=== PATIENT | male | born 1965 | race Caucasian/White ===

== ENCOUNTER 2017-01-30 19:04 | Observation (INO) | payer MEDICAID ==
[2017-01-30 19:04] VITALS: BMI 25.7
[2017-01-30] MEDS ORDERED: Sterile Water 10 ML IV ONE ×2 (19:19→23:27)
--- NOTE | 2017-01-30 20:24 | ED PDOC ---
HPI: Psych/Substance Abuse Time Seen by Provider: 01/30/17 19:25 Chief Complaint (Nursing): Psychiatric Evaluation Chief Complaint (Provider): Agitation ED Caveat: Uncooperative History Per: EMS, Other (documentation of [facility]) History/Exam Limitations: clinical condition (acute agitation, refusing to answer most questions) Onset/Duration Of Symptoms: Days (just prior to arrival) Current Symptoms Are (Timing): Still Present Associated Symptoms: Agitation Involuntary Hold By: None Additional Complaint(s): Asim Gonzales is a 51 year old male, with a past medical history inclusive of hypercholesterolemia, COPD, type II diabetes and bipolar disorder as per previous records, who presents to the ED on 01/30/17, via EMS, for the evaluation of acute agitation. Per EMS, patient is from the [facility], where he had been agitated/yelling at staff just prior to arrival and refusing to take his medications (including Aripiprazole and Depakote). Upon arrival, patient remains visibly agitated/yelling and is refusing to answer most questions, limiting HPI/ROS. PMD: Dr. Wright Past Medical History Reviewed: Historical Data, Nursing Documentation, Vital Signs Vital Signs: Last Vital Signs Temp 98.2 F 01/30/17 19:08 Pulse 70 01/30/17 19:08 Resp 18 01/30/17 19:08 BP 140/92 H 01/30/17 19:08 Pulse Ox 100 01/30/17 19:08 - Medical History PMH: Asthma, Bipolar Disorder, COPD, Diabetes (type II), GERD Denies: Hepatitis, HIV, HTN, Chronic Kidney Disease, Seizures, Sexually Transmitted Disease - Family History Family History: States: Unknown Family Hx - Social History Current smoker - smoking cessation education provided: Yes (heavy (>10 cigarettes/day)) Alcohol: None Drugs: Denies - Immunization History Hx Tetanus Toxoid Vaccination: No Hx Influenza Vaccination: No Hx Pneumococcal Vaccination: No - Home Medications Home Medications: Ambulatory Orders Medication Instructions Recorded Glipizide 5 mg PO BID 04/03/15 MetFORMIN [glucoPHAGE] 1,000 mg PO BID 04/03/15 Aspirin [Aspirin Chewable] 81 mg PO DAILY 11/12/16 Atorvastatin [Lipitor] 10 mg PO DAILY 11/12/16 Fenofibrate,Micronized 130 mg PO DAILY 11/12/16 [Fenofibrate] SITagliptin [Januvia] 100 mg PO DAILY 12/27/16 Aripiprazole [Abilify] 20 mg PO DAILY 01/31/17 Aspirin [Aspirin Chewable] 81 mg PO DAILY 01/31/17 Bisoprolol Fumarate [Bisoprolol 5 mg PO DAILY 01/31/17 Fumarate] Divalproex [Depakote ER] 500 mg PO HS 01/31/17 Meloxicam [Mobic] 15 mg PO DAILY 01/31/17 Multivitamin [Daily Kenneth] 1 tab PO DAILY 01/31/17 [place]-3 Fatty Acids/Fish Oil [Fish 1 tab PO BID 01/31/17 Oil Conc 1,000 mg Softgel] Omeprazole [Omeprazole] 40 mg PO DAILY 01/31/17 - Allergies Allergies/Adverse Reactions: Allergies Allergy/AdvReac Type Severity Reaction Status Date / Time acetaminophen [From NyQuil] Allergy Verified 12/27/16 22:53 clozapine [From Clozaril] Allergy Verified 12/27/16 22:53 dextromethorphan HBr Allergy Verified 12/27/16 22:53 [From NyQuil] doxylamine succinate Allergy Verified 12/27/16 22:53 [From NyQuil] lorazepam [From Ativan] Allergy Verified 12/27/16 22:53 pseudoephedrine HCl Allergy Verified 12/27/16 22:53 [From NyQuil] Review of Systems Review Of Systems: ROS cannot be obtained secondary to pt's inabilty to answer questions. Musculoskeletal: Positive for: Foot Pain (b/l, chronic) Psych: Positive for: Psychosis (agitation) Physical Exam - Reviewed Nursing Documentation Reviewed: Yes Vital Signs Reviewed: Yes - Physical Exam Appears: Positive for: Non-toxic, No Acute Distress Head Exam: Positive for: ATRAUMATIC, NORMOCEPHALIC Skin: Positive for: Normal Color, Warm, Dry Eye Exam: Positive for: Normal appearance, EOMI, PERRL Neck: Positive for: Normal, Painless ROM, Supple Cardiovascular/Chest: Positive for: Regular Rate, Rhythm. Negative for: Murmur Respiratory: Positive for: Normal Breath Sounds. Negative for: Respiratory Distress Gastrointestinal/Abdominal: Positive for: Normal Exam, Soft. Negative for: Tenderness Extremity: Positive for: Normal ROM (moving all extremities), Other (macerated skin noted to both soles and toes of b/l feet, pt reports this is chronic; no open wounds/ulcerations) Neurologic/Psych: Positive for: Alert, Oriented (x3), Mood/Affect (agitated) - Laboratory Results Result Diagrams: 01/30/17 20:45 01/30/17 23:04 - ECG ECG: Positive for: Interpreted By Me, Viewed By Me ECG Rhythm: Positive for: Normal QRS, Normal ST Segment, Sinus Rhythm Rate: 97 O2 Sat by Pulse Oximetry: 100 (RA) Pulse Ox Interpretation: Normal Medical Decision Making Medical Decision Makin:25 Initial Impression: bipolar disorder, acute psychosis; will clear patient medically for psychiatric evaluation Initial Plan: * EKG * Labs * Alcohol Serum * Salicylate * Acetaminophen * Valproic Acid * Udip * Urine Drug Screen * IV NS 1000ml at 1000mls/hr * Reevaluation Patient presents a danger to both himself and ED staff secondary to acute agitation. Will order application of 4-point physical restraints for patient safety as well as administration of Geodon 10mg IM for relief or acute psychosis. 21:05 Patient will be placed within ED Observation secondary to time-extensive ED workup and need of Crisis Evaluation. See Obs note for additional details. Scribe Attestation: Documented by Rossy Lou, acting as a scribe for Law Singh MD. Provider Scribe Attestation: All medical record entries made by the Scribe were at my direction and personally dictated by me. I have reviewed the chart and agree that the record accurately reflects my personal performance of the history, physical exam, medical decision making, and the department course for this patient. I have also personally directed, reviewed, and agree with the discharge instructions and disposition. ED OBSERVATION Date of observation admission: 01/30/17 Time of observation admission: 21:05 - Observation admission statement Patient is being placed in observation because:: Time-extensive ED workup and need for subsequent Crisis Evaluation. - Goals of Observation Goals of observation are:: Crisis Evaluation, reevaluation and final disposition. - Progress Note Progress Note: 01/31/17 07:00 Signing pt out to Dr. Donavan MD. Pending CXR and [facility] Evaluation. Disposition - Clinical Impression Clinical Impression: Schizoaffective disorder, bipolar type, Hyperglycemia - Patient ED Disposition Is Patient to be Admitted: Transfer of Care - Disposition Disposition: Transfer of Care Disposition Time: 07:00 Condition: FAIR Patient Signed Over To: Theodore Go Handoff Comments: pending CXR and [facility] dinorahe
[2017-01-30 20:52] LABS: BASO # 0.1 K/uL (0.0-0.2); EOS # 0.1 K/uL (0.0-0.7); EOS % 1.1 % (0.0-4.0); HEMATOCRIT 42.6 % (35.0-51.0); LYMPH # 2.9 K/uL (1.0-4.3); MEAN CELL VOLUME 94.7 fl (80.0-94.0); MEAN CORPUSCULAR HEMOGLOBIN 32.2 pg (27.0-31.0); MEAN CORPUSCULAR HGB CONC 33.9 g/dL (33.0-37.0); MONO # 0.8 K/uL (0.0-0.8); MONO % 9.7 % (0.0-10.0); NEUT # 4.4 K/uL (1.8-7.0); NEUT % 53.2 % (50.0-75.0); RED CELL DISTRIBUTION WIDTH 13.3 % (11.5-14.5); WHITE BLOOD COUNT 8.3 K/uL (4.8-10.8)
[2017-01-30] MEDS ORDERED: Sodium Chloride 0.9% 1,000 ML IV STA (21:05)
[2017-01-30 23:13] LABS: ALB/GLOB RATIO 1.2 (1.0-2.1); ALKALINE PHOSPHATASE 102 U/L (38-126); ALT/SGPT 46 U/L (21-72); AST/SGOT 76 U/L (17-59); BILIRUBIN,TOTAL 0.6 mg/dl (0.2-1.3); BLOOD UREA NITROGEN 20 mg/dl (9-20); CALCIUM 9.3 mg/dL (8.4-10.2); CARBON DIOXIDE 25 mmol/L (22-30); CHLORIDE 103 mmol/L (98-107); GFR AFRICAN-AMERICAN > 60; GLUCOSE,RANDOM 277 mg/dL (75-110); SODIUM 144 mmol/l (132-148); TOTAL PROTEIN 7.7 G/DL (6.3-8.2)
[2017-01-30] MEDS ORDERED: Insulin Regular 100 units/ml SC STA (23:17)
--- NOTE | 2017-01-31 07:00 | ED PDOC ---
- Laboratory Results Result Diagrams: 01/30/17 20:45 01/30/17 23:04 - ECG O2 Sat by Pulse Oximetry: 100 (RA) Medical Decision Making Medical Decision Makin:00 Patient signed out to me by Dr. Singh. Pending [facility] Evaluation 7:10 patient is agitated falling out of bed. Requiring 4 point restraints due to danger to himself. Medically stable for psychiatric admission 15;27 patient became keo agitated attempted to strike staff. Patient placed in 4 point restraints and medicated with Geodon. Disposition - Clinical Impression Clinical Impression: Schizoaffective disorder, bipolar type, Hyperglycemia - POA Present On Arrival: None - Disposition Disposition: Transfer of Care Disposition Time: 16:56 Condition: FAIR Patient Signed Over To: Tonja Yanez
--- NOTE | 2017-01-31 11:42 | CP.PCM.CON ---
History of Present Illness - History of Present Illness History of Present Illness: Psychiatry Consult CC: "Give me my clothes." Patient was a poor historian, stared at the sign writer hand and would not answer questions. Just stated that he wants his clothes. He was bizarre and seemed internally preoccupied. The following history was obtained from the chart: 51 year old male referred to this ED by his longterm secondary to paranoia, non compliance with medication and agitation. Pt refused to respond to this sign writer hand after several attempts and assessment was completed based on collateral information that was obtained. As per [place] in [facility] [phone] she reports that since last week there has a drastic change in Pts behavior. She reports Pt is usually talkative , however, he became more isolated and agitated. She reports he did not want to take medication. She reports Pt was also comaplining of pain in his shoulder, foot and blurred vision. She reports they grew increasingly concerned because Pt was unable to confirm where he lives when usually he was able to do that. At this time, she believes Pt requires admission for stabilization. MSE: A+ O x self, denied that he as in [facility], would not answer question about date, Umkempt, poor eye contact, distinterested in the interview , poverty of speech, +thought blocking, does not answer questions about mood/ hallucinations/SI/HI. Affect-flunted. Poor insight/judgment Impresssion: 51 yo male w/ h/o schizoaffective disorder, presents to the ER acutely decompensated. Recommendations: -Patient needs to be screened for involuntary admission Past Patient History - Tetanus Immunizations Tetanus Immunization: Unknown - Past Social History Alcohol: None Drugs: Denies - CARDIAC Hx Hypertension: No - PULMONARY Hx Asthma: Yes Hx Chronic Obstructive Pulmonary Disease (COPD): Yes - NEUROLOGICAL Hx Seizures: No - HEENT Hx HEENT Problems: No - RENAL Hx Chronic Kidney Disease: No - ENDOCRINE/METABOLIC Hx Endocrine Disorders: Yes Hx Diabetes Mellitus Type 2: Yes - HEMATOLOGICAL/ONCOLOGICAL Hx Human Immunodeficiency Virus (HIV): No - INTEGUMENTARY Hx Dermatological Problems: Yes Other/Comment: sebhorrea - MUSCULOSKELETAL/RHEUMATOLOGICAL Hx Musculoskeletal Disorders: No - GASTROINTESTINAL Hx Gastrointestinal Disorders: No - GENITOURINARY/GYNECOLOGICAL Hx Sexually Transmitted Disorders: No - PSYCHIATRIC Hx Bipolar Disorder: Yes - SURGICAL HISTORY Hx Surgeries: No - ANESTHESIA Hx Anesthesia: No Meds Allergies/Adverse Reactions: Allergies Allergy/AdvReac Type Severity Reaction Status Date / Time acetaminophen [From NyQuil] Allergy Verified 12/27/16 22:53 clozapine [From Clozaril] Allergy Verified 12/27/16 22:53 dextromethorphan HBr Allergy Verified 12/27/16 22:53 [From NyQuil] doxylamine succinate Allergy Verified 12/27/16 22:53 [From NyQuil] lorazepam [From Ativan] Allergy Verified 12/27/16 22:53 pseudoephedrine HCl Allergy Verified 12/27/16 22:53 [From NyQuil] - Medications Medications: Current Medications Bisoprolol Fumarate (Zebeta) 5 mg PO DAILY TASH Sitagliptin Phosphate (Januvia) 100 mg PO DAILY TASH Results - Vital Signs Recent Vital Signs: Last Vital Signs Temp 98 F 01/31/17 04:26 Pulse 97 H 01/31/17 06:46 Resp 14 01/31/17 04:26 BP 118/72 01/31/17 04:26 Pulse Ox 100 01/31/17 07:20 - Labs Result Diagrams: 01/30/17 20:45 01/30/17 23:04 Labs: Laboratory Results - last 24 hr 01/30/17 01/30/17 01/30/17 21:30 23:04 23:38 Sodium 144 Potassium 4.0 Chloride 103 Carbon Dioxide 25 Anion Gap 19 BUN 20 Creatinine 0.8 Est GFR ( Amer) > 60 Est GFR (Non-Af Amer) > 60 POC Glucose (mg/dL) 121 H Random Glucose 277 H Calcium 9.3 Total Bilirubin 0.6 AST 76 H ALT 46 Alkaline Phosphatase 102 Total Protein 7.7 Albumin 4.2 Globulin 3.4 Albumin/Globulin Ratio 1.2 Urine Opiates Screen Urine Methadone Screen Ur Barbiturates Screen Valproic Acid < 10.0 L Ur Phencyclidine Scrn Ur Amphetamines Screen U Benzodiazepines Scrn U Oth Cocaine Metabols U Cannabinoids Screen 01/31/17 04:51 Sodium Potassium Chloride Carbon Dioxide Anion Gap BUN Creatinine Est GFR ( Amer) Est GFR (Non-Af Amer) POC Glucose (mg/dL) Random Glucose Calcium Total Bilirubin AST ALT Alkaline Phosphatase Total Protein Albumin Globulin Albumin/Globulin Ratio Urine Opiates Screen Negative Urine Methadone Screen Negative Ur Barbiturates Screen Negative Valproic Acid Ur Phencyclidine Scrn Negative Ur Amphetamines Screen Negative U Benzodiazepines Scrn Negative U Oth Cocaine Metabols Negative U Cannabinoids Screen Negative
[2017-01-31] MEDS: Tobramycin 0.3% OPHT SOLN OD ONE ×2 (13:27→15:20)
--- NOTE | 2017-01-31 13:27 | RAD ---
HISTORY: Medical clearance. Technique: Supine view performed @ 11:10. COMPARISON: No prior. FINDINGS: LUNGS: No active pulmonary disease. PLEURA: No significant pleural effusion identified, no pneumothorax apparent. CARDIOVASCULAR: Normal. OSSEOUS STRUCTURES: No significant abnormalities. VISUALIZED UPPER ABDOMEN: Normal. OTHER FINDINGS: None. IMPRESSION: No active disease.
[2017-01-31] MEDS ORDERED: Sterile Water 10 ML IV ONE (15:19)
--- NOTE | 2017-01-31 23:20 | ED PDOC ---
- Laboratory Results Result Diagrams: 01/30/17 20:45 01/30/17 23:04 - ECG O2 Sat by Pulse Oximetry: 100 (RA) Pulse Ox Interpretation: Normal Medical Decision Making Medical Decision Making: Scribe Attestation: Documented by Rossy Lou, acting as a scribe for Tonja Yanez MD. Provider Scribe Attestation: All medical record entries made by the Scribe were at my direction and personally dictated by me. I have reviewed the chart and agree that the record accurately reflects my personal performance of the history, physical exam, medical decision making, and the department course for this patient. I have also personally directed, reviewed, and agree with the discharge instructions and disposition. Disposition - Clinical Impression Clinical Impression: Schizoaffective disorder, bipolar type, Hyperglycemia - POA Present On Arrival: None - Disposition Disposition: Transfer of Care Disposition Time: 00:00 Condition: FAIR ED OBSERVATION Date of observation admission: 01/30/17 Time of observation admission: 19:26 - Observation admission statement Patient is being placed in observation because:: See previous note. - Goals of Observation Goals of observation are:: See previous note. - Progress Note Progress Note: 01/31/17 17:00 Patient endorsed over to me by Theodore Go MD, pending bedhold at [facility]. Patient sleeping comfortably in ED, no apparent distress. 01/31/17 19:00 Patient remains comfortable in ED, no distress. Still pending [facility] bedhold. 01/31/17 21:00 Patient remains comfortable in ED, no distress. Still pending [facility] bedhold. 01/31/17 23:17 Patient has woken up and is calm/cooperative in ED. Renewed 4-point restraint order secondary as patient is being involuntarily admitted to [facility].
[2017-02-01 06:21] VITALS: RESP 16
--- NOTE | 2017-02-01 06:21 | ED PDOC ---
- Laboratory Results Result Diagrams: 01/30/17 20:45 01/30/17 23:04 - ECG O2 Sat by Pulse Oximetry: 98 Medical Decision Making Medical Decision Making: Patient s/o from Dr. Yanez at 1900 pending [facility] bed. Patient has been accepted to [facility] but pending bed availability. 0610: Patient became agitated again requiring chemical sedation and physical restraints. Patient s/o to Dr. Asencio at 0700 pending [facility] bed availability and sobriety. Scribe Attestation: Documented by Olivia Jimenes acting as a scribe for Jose Angelo MD. Provider Scribe Attestation: All medical record entries made by the Scribe were at my direction and personally dictated by me. I have reviewed the chart and agree that the record accurately reflects my personal performance of the history, physical exam, medical decision making, and the department course for this patient. I have also personally directed, reviewed, and agree with the discharge instructions and disposition. Disposition - Clinical Impression Clinical Impression: Schizoaffective disorder, bipolar type, Hyperglycemia - POA Present On Arrival: None - Disposition Disposition: Transfer of Care Disposition Time: 07:00 Condition: FAIR Patient Signed Over To: Matilde Asencio Handoff Comments: pending [facility] bed availability and sobriety
--- NOTE | 2017-02-01 07:41 | ED PDOC ---
- Laboratory Results Result Diagrams: 01/30/17 20:45 01/30/17 23:04 - ECG O2 Sat by Pulse Oximetry: 98 Medical Decision Making Medical Decision Makin signed over to me by Olivia Angelo MD pending [facility] bed availability and sobriety. Patient was medically cleared by a previous shift. 0900 resting comfortably 1100 vitals are stable 1145: patient ready for transfer to [facility]. Disposition Doctor Will See Patient In The: Hospital - Clinical Impression Clinical Impression: Schizoaffective disorder, bipolar type, Hyperglycemia - POA Present On Arrival: None - Disposition Disposition: Other Institution Disposition Time: 11:52 Condition: FAIR ED OBSERVATION Date of observation admission: 01/30/17 Time of observation admission: 21:15 Additional Comments - Additional Comments Additional Comments: Scribe Attestation: Documented by Rudy Ibarra acting as a scribe for Matilde Asencio MD. Provider Scribe Attestation: All medical record entries made by the Scribe were at my direction and personally dictated by me. I have reviewed the chart and agree that the record accurately reflects my personal performance of the history, physical exam, medical decision making, and the department course for this patient. I have also personally directed, reviewed, and agree with the discharge instructions and disposition.
[2017-02-01 11:11] VITALS: BP 150/91; PULSE 81; TEMP 98.1
--- NOTE | 2017-02-01 11:46 | CARD ---
APPROVED REPORT EKG Measurement Heart [id number] <Conclusion> Normal sinus rhythm Normal ECG
--- NOTE | 2017-02-01 13:03 | CP.PCM.CON ---
History of Present Illness - History of Present Illness History of Present Illness: Psychiatry consult follow-up- Patient pending involuntary bed at [facility] CC: "I want to go to [place]" Patient was a poor historian, continues to not answer questions from advertising copy writer. He was bizarre and seemed internally preoccupied. The following history was obtained from the chart: 51 year old male referred to this ED by his correction secondary to paranoia, non compliance with medication and agitation. Pt refused to respond to this advertising copy writer after several attempts and assessment was completed based on collateral information that was obtained. As per N[place] in [facility] [phone] she reports that since last week there has a drastic change in Pts behavior. She reports Pt is usually talkative , however, he became more isolated and agitated. She reports he did not want to take medication. She reports Pt was also comaplining of pain in his shoulder, foot and blurred vision. She reports they grew increasingly concerned because Pt was unable to confirm where he lives when usually he was able to do that. At this time, she believes Pt requires admission for stabilization. MSE: A+ O x self, denied that he as in [facility], would not answer question about date, Umkempt, poor eye contact, distinterested in the interview , poverty of speech, +thought blocking, does not answer questions about mood/ hallucinations/SI/HI. Affect-flunted. Poor insight/judgment Impresssion: 51 yo male w/ h/o schizoaffective disorder, presents to the ER acutely decompensated. Recommendations: -Pending bed for involuntary admission at [facility] Past Patient History - Tetanus Immunizations Tetanus Immunization: Unknown - Past Social History Alcohol: None Drugs: Denies - CARDIAC Hx Hypertension: No - PULMONARY Hx Asthma: Yes Hx Chronic Obstructive Pulmonary Disease (COPD): Yes - NEUROLOGICAL Hx Seizures: No - HEENT Hx HEENT Problems: No - RENAL Hx Chronic Kidney Disease: No - ENDOCRINE/METABOLIC Hx Endocrine Disorders: Yes Hx Diabetes Mellitus Type 2: Yes - HEMATOLOGICAL/ONCOLOGICAL Hx Human Immunodeficiency Virus (HIV): No - INTEGUMENTARY Hx Dermatological Problems: Yes Other/Comment: sebhorrea - MUSCULOSKELETAL/RHEUMATOLOGICAL Hx Musculoskeletal Disorders: No - GASTROINTESTINAL Hx Gastrointestinal Disorders: No - GENITOURINARY/GYNECOLOGICAL Hx Sexually Transmitted Disorders: No - PSYCHIATRIC Hx Bipolar Disorder: Yes - SURGICAL HISTORY Hx Surgeries: No - ANESTHESIA Hx Anesthesia: No Meds Allergies/Adverse Reactions: Allergies Allergy/AdvReac Type Severity Reaction Status Date / Time acetaminophen [From NyQuil] Allergy Verified 12/27/16 22:53 clozapine [From Clozaril] Allergy Verified 12/27/16 22:53 dextromethorphan HBr Allergy Verified 12/27/16 22:53 [From NyQuil] doxylamine succinate Allergy Verified 12/27/16 22:53 [From NyQuil] lorazepam [From Ativan] Allergy Verified 12/27/16 22:53 pseudoephedrine HCl Allergy Verified 12/27/16 22:53 [From NyQuil] - Medications Medications: Current Medications Bisoprolol Fumarate (Zebeta) 5 mg PO DAILY [facility] Last Admin: 01/31/17 13:27 Dose: Not Given Sitagliptin Phosphate (Januvia) 100 mg PO DAILY [facility] Last Admin: 01/31/17 13:27 Dose: 100 mg Results - Vital Signs Recent Vital Signs: Last Vital Signs Temp 98.1 F 02/01/17 11:10 Pulse 81 02/01/17 11:10 Resp 16 02/01/17 11:10 BP 150/91 H 02/01/17 11:10 Pulse Ox 98 02/01/17 11:52 - Labs Result Diagrams: 01/30/17 20:45 01/30/17 23:04 Labs: Laboratory Results - last 24 hr 01/31/17 12:43 POC Glucose (mg/dL) 160 H
[2017-02-04 21:26] VITALS: O2SAT 100
== END 2017-02-01 13:26 | disposition short-term general hospital (02) ==
LOC: H.ER 19:04 → H.EROBSV 21:15
PROVIDERS: ADMIT Emergency Medicine; ATTEND Emergency Medicine
DX: F25.0 Schizoaffective disorder, bipolar type (principal); E11.65 Type 2 diabetes mellitus with hyperglycemia; F17.210 Nicotine dependence, cigarettes, uncomplicated; J45.909 Unspecified asthma, uncomplicated; Z78.1 Physical restraint status